=== PATIENT | male | born 1975 | race Caucasian/White ===

== ENCOUNTER 2024-12-27 06:26 | Day surgery (SDC) | payer OTHER, SELFPAY | END 2024-12-27 10:22 | disposition home or self-care (01) | LOC: GI 06:26 | PROVIDERS: ATTENDING PHYSICIAN Student in an Organized Health Care Education/Training Program | DX: K62.5 Hemorrhage of anus and rectum (principal); D50.9 Iron deficiency anemia, unspecified; K64.0 First degree hemorrhoids; K64.4 Residual hemorrhoidal skin tags; K62.89 Other specified diseases of anus and rectum; R12 Heartburn; D12.2 Benign neoplasm of ascending colon; K63.5 Polyp of colon; K29.50 Unspecified chronic gastritis without bleeding; B96.81 Helicobacter pylori [H. pylori] as the cause of diseases classified elsewhere | CPT/HCPCS: 45385; 45380; 43239; 88305; 88342 ==